=== PATIENT | female | born 1995 | race Two or more races ===

== ENCOUNTER 2023-01-13 13:27 | Emergency (ER) | payer SELFPAY ==
[~2023-01-13] VITALS: Ht 165.1 cm; Wt 85.7 kg
[2023-01-13] MEDS ORDERED: MORPHINE SULFATE 2 MG/1 ML DISP.SYRIN IV ONE (14:00)
[2023-01-13 14:14] LABS: HEMATOCRIT 42.3 % (31.2-41.9); MEAN CORPUSCULAR HEMOGLOBIN 28.5 uug (24.7-32.8); PLATELET COUNT (AUTO) 287 K/uL (179-408)
[2023-01-13 14:28] LABS: BILIRUBIN,DIRECT 0.1 mg/dL (0.0-0.2); BILIRUBIN,TOTAL 0.3 mg/dL (0.2-1.0); CREATININE 0.9 mg/dL (0.6-1.3); TOTAL PROTEIN, SERUM 8.4 g/dL (6.4-8.2)
[2023-01-13] MEDS ORDERED: MORPHINE SULFATE 2 MG/1 ML DISP.SYRIN ONE (14:28)
[2023-01-13 14:30] LABS: *BILIRUBIN,URIN NEGATIVE (NEGATIVE); *BLOOD, URINE 3+ (NEGATIVE); *CLARITY,URINE CLOUDY (CLEAR); *COLOR,URINE YELLOW (YELLOW); *KETONES,URINE TRACE (NEGATIVE); *UROBILINOGEN,URINE 0.2 E.U./dl (NORMAL); LEUKOCYTE ESTERASE ,URINE 2+ (NEGATIVE); NITRITE, URINE POSITIVE (NEGATIVE); PH,URINE 5.5 (5.0-8.0); UGLUCOSE NEGATIVE (NEGATIVE)
[2023-01-13 14:32] LABS: *URINE HCG, QUAL NEGATIVE (NEGATIVE)
[2023-01-13 14:36] LABS: BACTERIA,URINE MODERATE /HPF (NONE SEEN); RBC,URINE NONE SEEN /HPF (0-3); WBC,URINE 80-100 /HPF (0-3)
[2023-01-13 14:37] LABS: SQUAMOUS EPITHELIAL CELL,UR FEW /HPF (NONE SEEN)
--- NOTE | 2023-01-13 14:38 | NUR ---
Pt seen by MD for Bedside Eval. Safety measures in place. Will continue to monitor.
[2023-01-13] MEDS ORDERED: KETOROLAC TROMETHAMINE 15 MG INJ ONE (14:49)
[2023-01-13] MEDS ORDERED: CEFP200T14 PO (14:53)
[2023-01-13] MEDS ORDERED: HYDR-3972 PO (14:53)
[2023-01-13] MEDS ORDERED: KETOROLAC TROMETHAMINE 15 MG INJ IVP ONE (15:00)
--- NOTE | 2023-01-13 15:13 | NUR ---
Patient discharged to home in stable condition. Written and verbal after care instructions given. Patient verbalizes understanding of instructions. Stressed follow up or return to ER for worsening s/s.
[2023-01-13 15:14] VITALS: BP 118/76
== END 2023-01-13 15:15 | disposition home or self-care (01) ==
LOC: ER 13:29
DX: N12 Tubulo-interstitial nephritis, not specified as acute or chronic (principal)
CPT/HCPCS: 99284; 96374; 96375; 80076; 80048; 81001; 84703; 83690; 85025; 36415; 87040; J1885; J2270; A4663